=== PATIENT | male | born 1990 | race Caucasian/White ===

== ENCOUNTER 2017-03-02 19:55 | Outpatient (CLI) | payer OTHER | END 2017-03-02 19:56 | disposition critical access hospital (66) | LOC: EMS 19:55 | PROVIDERS: ATTEND Surgery | DX: R07.9 Chest pain, unspecified (principal) | CPT/HCPCS: A0425; A0427 ==

== ENCOUNTER 2017-03-02 20:16 | Emergency (ER) | payer OTHER ==
--- NOTE | 2017-03-02 21:58 | ED Physician Documentation ---
PD HPI CHEST PAIN - Stated complaint Stated Complaint: CP - Chief complaint Chief Complaint: Cardiac - History obtained from History obtained from: Patient, Family, Friend - History of Present Illness Timing - onset: Enter time (1900), Today Timing - onset during: Light activity Timing - duration: Hours (2) Timing - details: Abrupt onset, Now resolved Quality: Tightness, Sharp, Pain Location: Left chest Radiation: No: Jaw, Neck, Back, Abdominal, Left upper extremity, Right upper extremity Improved by: Nothing Worsened by: Other (nothing) Associated symptoms: Other (numbness to the toes and lips). 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 He describes the pain is sharp intermittent and painful. Without radiation. He thought that he might have some heartburn and bought some antacids went to his car took a lot of antacids and this did not seem to help. He went to get [employer] for his family and came home and relayed this information to his . She eventually convinced him to come to the hospital and in route to the hospital he developed worsening of his symptoms and his describes he appeared pale and he had developed the numbness in the fingers and toes. He was transported the hospital by ambulance with this pain and about one half hour after being in the emergency department his pain is resolved and he feels normal now. He describes only a prior episode of a rapid heart rate yesterday as the only thing this happened to him recently. He states that otherwise he has been feeling well. He returned from a det yesterday where he had been in [place] for the [employer]. He denies any overt anxiety or worries about things either at home or work. Review of Systems Constitutional: denies: Fever, Chills, Myalgias, Fatigue Eyes: denies: Decreased vision Ears: denies: Ear pain Nose: denies: Rhinorrhea / runny nose, Congestion Throat: denies: Sore throat Cardiac: reports: Chest pain / pressure, Palpitations (yesterday lasting minutes ) Respiratory: denies: Dyspnea, Cough GI: denies: Abdominal Pain, Nausea, Vomiting : denies: Dysuria, Frequency Skin: denies: Rash Musculoskeletal: denies: Neck pain, Back pain, Extremity pain Neurologic: reports: Numbness. denies: Generalized weakness, Focal weakness Psychiatric: denies: Depressed, Anxiety PD PAST MEDICAL HISTORY - Past Medical History Past Medical History: No - Past Surgical History Past Surgical History: No - Present Medications Home Medications: Ambulatory Orders Medication Instructions Recorded Confirmed No Known Home Medications [No 03/02/17 03/02/17 Known Home Medications] - Allergies Allergies/Adverse Reactions: Allergies Allergy/AdvReac Type Severity Reaction Status Date / Time No Known Drug Allergies Allergy Verified 03/02/17 20:22 - Social History Does the pt smoke?: No Smoking Status: Never smoker Does the pt drink ETOH?: Yes Does the pt have substance abuse?: No - Immunizations Immunizations are current?: Yes - POLST Patient has POLST: No PD ED PE NORMAL - Vitals Vital signs reviewed: Yes (hypertensive ) - General General: Alert and oriented X 3, No acute distress, Well developed/nourished - HEENT HEENT: Atraumatic, PERRL, EOMI, Moist mucous membranes, Pharynx benign, Dentition benign - Neck Neck: Supple, no meningeal sign, No bony TTP - Cardiac Cardiac: RRR, No murmur - Respiratory Respiratory: No respiratory distress, Clear bilaterally - Abdomen Abdomen: Soft, Non tender - Back Back: No CVA TTP, No spinal TTP - Derm Derm: Normal color, Warm and dry, No rash - Extremities Extremities: No deformity, No edema - Neuro Neuro: Alert and oriented X 3, 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, No motor deficit, No sensory deficit, Normal speech - Psych Psych: Normal mood, Normal affect Results - Vitals Vitals: Vital Signs - 24 hr 03/02/17 03/02/17 03/02/17 20:17 20:42 23:24 Temperature 36.8 C Heart Rate 67 63 58 L Respiratory 18 13 18 Rate Blood Pressure 149/84 H 148/85 H O2 Saturation 99 99 96 03/02/17 23:32 Temperature Heart Rate Respiratory Rate Blood Pressure 122/70 O2 Saturation Oxygen O2 Source Room air - EKG (time done) 2023 Rate: Rate (enter#) (74) Rhythm: Other (sinus arrythmia) Ischemia: Normal ST segments Compare to prior EKG: Old EKG unavailable Computer interpretation: Agree with computer - Labs Labs: Laboratory Tests 03/02/17 03/02/17 03/02/17 22:05 22:05 22:05 WBC 11.1 H RBC 4.93 Hgb 15.3 Hct 43.0 MCV 87.1 MCH 31.1 H MCHC 35.7 RDW 13.0 Plt Count 277 MPV 7.2 L Neut # 8.4 H Lymph # 1.8 [place] # 0.7 Eos # 0.1 Baso # 0.1 Absolute Nucleated RBC 0.00 Nucleated RBCs 0.0 Sodium 138 Potassium 3.9 Chloride 101 Carbon Dioxide 26 Anion Gap 11.0 BUN 18 Creatinine 1.1 Estimated GFR (MDRD) 81 L Glucose 99 Calcium 10.4 H Total Bilirubin 0.6 AST 27 ALT 34 Alkaline Phosphatase 75 Troponin I < 0.04 Total Protein 8.3 H Albumin 5.2 Globulin 3.1 Albumin/Globulin Ratio 1.7 Lipase 25 - Rads (name of study) 2 view chest Radiology: Prelim report reviewed (Impression: Normal two-view chest radiography.), EMP read indepedently, See rad report PD MEDICAL DECISION MAKING - ED course Complexity details: reviewed old records, reviewed results, re-evaluated patient , considered differential, d/w patient, d/w family ED course: 26-year-old male with acute chest pains this evening accompanied by some numbness and tingling of his toes and fingers consistent with hyperventilation syndrome. His workup here today is unremarkable. The patient does not believe he has reasons to be anxious and is having a hard time believing his symptoms are related to anxiety. I have encouraged the patient to return to the emergency department should he have recurrence of symptoms and for reevaluation.I did discuss with the patient progression of anxiety and panic attack in his age group. I did discuss subconscious anxiety and factors that would indicate her need to return to the emergency department for reevaluation. Departure - Departure Disposition: 01 Home, Self Care Clinical Impression: Atypical chest pain, Anxiety attack Condition: Stable Instructions: ED Panic Attack, ED Chest Pain Atypical Unkn Cause Follow-Up: LYNNE Slater [Provider Group] Discharge Date/Time: 03/02/17 23:40
[2017-03-02 22:14] LABS: BASOPHILS # (AUTO) 0.1 10^3/uL (0.0-0.1); BASOPHILS % (AUTO) 0.6 %; EOSINOPHILS # (AUTO) 0.1 10^3/uL (0.0-0.7); HGB - HEMOGLOBIN 15.3 g/dL (14.0-18.0); LYMPHOCYTES # (AUTO) 1.8 10^3/uL (1.5-3.5); LYMPHOCYTES % (AUTO) 16.3 %; MEAN CORPUSCULAR HEMOGLOBIN 31.1 pg (27.0-31.0); MEAN CORPUSCULAR HGB CONC 35.7 g/dL (32.0-36.0); MEAN CORPUSCULAR VOLUME 87.1 fL (80.0-94.0); MEAN PLATELET VOLUME 7.2 fL (7.4-11.4); MONOCYTES # (AUTO) 0.7 10^3/uL (0.0-1.0); MONOCYTES % (AUTO) 6.4 %; NEUTROPHILS # (AUTO) 8.4 10^3/uL (1.5-6.6); NEUTROPHILS % (AUTO) 75.7 %; RED BLOOD COUNT 4.93 10^6/uL (4.70-6.10); UNCORRECTED WHITE BLOOD COUNT 11.1 x10^3/uL; WHITE BLOOD COUNT 11.1 x10^3/uL (4.8-10.8)
[2017-03-02 22:28] LABS: ALBUMIN/GLOBULIN RATIO 1.7 (1.0-2.2); BILIRUBIN,TOTAL 0.6 mg/dL (0.2-1.0); CALCIUM 10.4 mg/dL (8.5-10.3); CREATININE 1.1 mg/dL (0.6-1.2); POTASSIUM 3.9 mmol/L (3.5-5.0); TOTAL PROTEIN 8.3 g/dL (6.7-8.2)
--- NOTE | 2017-03-02 22:38 | XRAY Preliminary Report ---
Exam: XR Chest 2 View PA/LAT IMPRESSION: Normal 2-view chest radiography. [facility] SITE ID: [id number]
--- NOTE | 2017-03-02 22:41 | XRAY Report ---
EXAM: CHEST RADIOGRAPHY EXAM DATE: 03/02/2017 10:20 PM. CLINICAL HISTORY: Chest pain . COMPARISON: None. TECHNIQUE: 2 views. FINDINGS: Lungs/Pleura: No focal opacities evident. No pleural effusion. No pneumothorax. Normal volumes. Mediastinum: Heart and mediastinal contours are unremarkable. Other: None. IMPRESSION: Normal 2-view chest radiography. [facility] Referring Provider Line: [phone] SITE ID: [id number]
[2017-03-02 23:34] VITALS: BP 122/70
== END 2017-03-02 23:40 | disposition home or self-care (01) ==
LOC: EDUNIT# → ED 20:16
DX: R07.89 Other chest pain (principal); F41.9 Anxiety disorder, unspecified
CPT/HCPCS: 36415; 71020; 80053; 83690; 84484; 85025; 93005; 99284

== ENCOUNTER 2017-08-16 16:23 | Outpatient (CLI) | payer OTHER ==
--- NOTE | 2017-08-17 16:29 | MRI Report ---
EXAM: MRI LUMBAR SPINE WITHOUT CONTRAST EXAM DATE: 08/16/2017 05:07 PM. CLINICAL HISTORY: Low back pain. COMPARISON: None. TECHNIQUE: Multiplanar, multisequence T1-weighted and fluid-sensitive sequences of the lumbar spine f rom T12 to S1 without contrast. Other: None. FINDINGS: There is normal alignment of the lumbar spine. There is a mild decrease in the height of the disk wit h desiccation at L4-L5. There is Modic type I and Modic type II endplate degenerative change within t he L4-L5 endplates. The conus terminates at T12-L1 and is normal. There is no significant atrophy of the paraspinal musculature or the psoas musculature. The abdominal aorta is of normal caliber. The kidneys are without evidence of hydronephrosis. T12-L1: There is no significant disk bulge, central or foraminal stenosis. The facets are normal. L1-L2: There is no significant disk bulge, central or foraminal stenosis. The facets are normal. L2-L3: There is no significant disk bulge, central or foraminal stenosis. The facets are normal. L3-L4: There is no significant disk bulge, central or foraminal stenosis. The facets are normal. L4-L5: There is a broad-based disk osteophyte complex with annular tear producing a minimal central c anal stenosis. There is mild left and mild to moderate right foraminal stenosis. L5-S1: There is no significant disk bulge, central or foraminal stenosis. The facets are normal. IMPRESSION: 1. There is a broad-based disk osteophyte complex with annular tear at L4-L5 producing a minimal cent ral canal stenosis. There is mild left and [id number] right foraminal stenosis. Comment: The following findings are so common in adults without low back pain that while we report th eir presence, they must be interpreted with caution and in the context of the clinical situation. (Re cy Joseph et al, Spine 2001) Prevalence of findings in patients without low back pain: Disk degeneration (any evidence): 92% Disk desiccation/T2 signal loss: 83% Disk height loss: 56% Disk bulge: 64% Disk protrusion: 32% Annular tear/high intensity zone: 38% [facility] Referring Provider Line: [phone] SITE ID: [id number]
== END 2017-08-16 16:24 | disposition home or self-care (01) ==
LOC: DI 16:23
PROVIDERS: ATTEND General Practice
DX: M51.36 Other intervertebral disc degeneration, lumbar region (principal)
CPT/HCPCS: 72148

== ENCOUNTER 2017-09-16 15:38 | Emergency (ER) | payer OTHER ==
--- NOTE | 2017-09-16 16:46 | ED Physician Documentation ---
PD HPI ABD PAIN - Stated complaint Stated Complaint: R SIDE PAIN - Chief complaint Chief Complaint: Abd Pain - History obtained from History obtained from: Patient - History of Present Illness Timing - onset: How many weeks ago (1) Timing - duration: Weeks (1) Timing - details: Abrupt onset, Still present Pain level max: 8 Pain level now: 2 Quality: Cramping, Sharp, Pain Location: RUQ Improved by: Laying still Worsened by: Eating, Breathing, Position, Palpation Associated symptoms: Nausea, Constipation. No: Vomiting Similar symptoms before: No diagnosis Recently seen: Not recently seen - Additional information Additional information: 27-year-old male reports that over the past year that he has had right upper quadrant pain that is sharp after eating. In in brief episodes. He has now developed pain that is a dull ache in the right upper quadrant that is been present for 1 week. He continues to get an increase in the pain to a sharpness when he eats. He as had a reduced amount that he is eating he has not lost weight. Review of Systems Constitutional: denies: Fever Eyes: denies: Decreased vision Ears: denies: Ear pain Nose: denies: Congestion Throat: denies: Sore throat Cardiac: denies: Chest pain / pressure, Palpitations Respiratory: denies: Dyspnea, Cough GI: reports: Abdominal Pain, Constipation. denies: Nausea, Vomiting : denies: Dysuria, Frequency Skin: denies: Rash Musculoskeletal: denies: Neck pain, Back pain, Extremity pain PD PAST MEDICAL HISTORY - Past Medical History Past Medical History: No - Past Surgical History Past Surgical History: No - Present Medications Home Medications: Ambulatory Orders Medication Instructions Recorded Confirmed No Known Home Medications [No 03/02/17 03/02/17 Known Home Medications] - Allergies Allergies/Adverse Reactions: Allergies Allergy/AdvReac Type Severity Reaction Status Date / Time No Known Drug Allergies Allergy Verified 03/02/17 20:22 - Social History Does the pt smoke?: No Smoking Status: Never smoker Does the pt drink ETOH?: Yes Does the pt have substance abuse?: No - Immunizations Immunizations are current?: Yes - POLST Patient has POLST: No PD ED PE NORMAL - Vitals Vital signs reviewed: Yes (Diastolic hypertension) - General General: Alert and oriented X 3, No acute distress, Well developed/nourished - HEENT HEENT: Atraumatic, PERRL, EOMI - Neck Neck: Supple, no meningeal sign, No bony TTP - Cardiac Cardiac: RRR, No murmur - Respiratory Respiratory: No respiratory distress, Clear bilaterally - Abdomen Abdomen: Soft, Other (Rigth upper quadrant pain to palpation is mild but present. ) - Back Back: No CVA TTP, No spinal TTP - Derm Derm: Normal color, Warm and dry, No rash - Extremities Extremities: No deformity, No edema - Neuro Neuro: Alert and oriented X 3, No motor deficit, No sensory deficit, Normal speech Eye Opening: Spontaneous Motor: Obeys Commands Verbal: Oriented GCS Score: 15 - Psych Psych: Normal mood, Normal affect Results - Vitals Vitals: Vital Signs - 24 hr 09/16/17 09/16/17 15:46 18:42 Temperature 36.8 C Heart Rate 63 71 Respiratory 19 18 Rate Blood Pressure 131/87 H 130/75 O2 Saturation 97 98 Oxygen O2 Source Room air - Labs Labs: Laboratory Tests 09/16/17 09/16/17 16:48 16:48 WBC 4.9 RBC 4.81 Hgb 14.4 Hct 40.7 L MCV 84.8 MCH 29.9 MCHC 35.3 RDW 13.2 Plt Count 231 MPV 7.0 L Neut # 2.6 Lymph # 1.7 [place] # 0.5 Eos # 0.1 Baso # 0.0 Absolute Nucleated RBC 0.00 Nucleated RBC % 0.0 Sodium 137 Potassium 3.8 Chloride 103 Carbon Dioxide 25 Anion Gap 9.0 BUN 15 Creatinine 0.9 Estimated GFR (MDRD) 101 Glucose 98 Calcium 9.5 Total Bilirubin 0.9 AST 30 ALT 55 Alkaline Phosphatase 63 Total Protein 7.7 Albumin 4.7 Globulin 3.0 Albumin/Globulin Ratio 1.6 Lipase 24 - Rads (name of study) GB ultrasound Radiology: Prelim report reviewed (Impression: 1. The gallbladder demonstrates no stones or wall thickening. 2. There is no intra-or extrahepatic bile duct dilation. 3. There are is mild right hydronephrosis.), EMP read indepedently, See rad report Procedures - Bedside sono Bedside sono by EMP: With the use of bedside ultrasound the gallbladder is imaged it is sonographically tender and there is a thickened gallbladder wall measuring 0.8 cm. PD MEDICAL DECISION MAKING - ED course Complexity details: reviewed results, re-evaluated patient, considered differential, d/w patient ED course: 27-year-old male who has a history of pain in the right upper quadrant for more than a year. He states that usually this is been just a periodic sharp pain and he does related somehow to eating. I have chosen to investigate the gallbladder and this situation we found the gallbladder to be entirely normal. His blood work was entirely normal as well. He did have some hydronephrosis on the right side on the ultrasound and I considered CT scan of the abdomen and pelvis to rule out renal lithiasis and this seemed overkill when all other studies were normal and his symptoms do not match with renal lithiasis. He does have some point tenderness he is able to isolate to an area right under the ribs in the midaxillary line at the tip of the ninth rib. He does think he might of injured this area last week and I have given him a dose of dexamethasone. I am not finding any urgent emergency to treat and the patient will follow up with his primary as needed. Departure - Departure Disposition: 01 Home, Self Care Clinical Impression: Abdominal pain Qualifiers: Abdominal location: right upper quadrant Qualified Code(s): R10.11 - Right upper quadrant pain Instructions: ED Abdominal Pain Unkn Cause Follow-Up: Caryl Iverson MD [Primary Care Provider] -
[2017-09-16 16:55] LABS: BASOPHILS % (AUTO) 0.3 %; EOSINOPHILS # (AUTO) 0.1 10^3/uL (0.0-0.7); EOSINOPHILS % (AUTO) 2.8 %; HGB - HEMOGLOBIN 14.4 g/dL (14.0-18.0); LYMPHOCYTES # (AUTO) 1.7 10^3/uL (1.5-3.5); LYMPHOCYTES % (AUTO) 34.1 %; MEAN CORPUSCULAR HEMOGLOBIN 29.9 pg (27.0-31.0); MEAN CORPUSCULAR HGB CONC 35.3 g/dL (32.0-36.0); MEAN CORPUSCULAR VOLUME 84.8 fL (80.0-94.0); MONOCYTES # (AUTO) 0.5 10^3/uL (0.0-1.0); NEUTROPHILS # (AUTO) 2.6 10^3/uL (1.5-6.6); NEUTROPHILS % (AUTO) 52.8 %; PLT - PLATELET COUNT 231 10^3/uL (130-450); RED BLOOD COUNT 4.81 10^6/uL (4.70-6.10); RED CELL DISTRIBUTION WIDTH 13.2 % (12.0-15.0); WHITE BLOOD COUNT 4.9 x10^3/uL (4.8-10.8)
[2017-09-16 17:06] LABS: ALBUMIN 4.7 g/dL (3.2-5.5); ALBUMIN/GLOBULIN RATIO 1.6 (1.0-2.2); BILIRUBIN,TOTAL 0.9 mg/dL (0.2-1.0); CALCIUM 9.5 mg/dL (8.5-10.3); CREATININE 0.9 mg/dL (0.6-1.2); TOTAL PROTEIN 7.7 g/dL (6.7-8.2)
--- NOTE | 2017-09-16 19:19 | Ultrasound Report ---
EXAM: ABDOMEN ULTRASOUND LIMITED, RUQ EXAM DATE: 09/16/2017 05:34 PM. CLINICAL HISTORY: RUQ pain. COMPARISON: None. TECHNIQUE: Real-time scanning was performed with static images obtained. FINDINGS: Liver: Submitted images of liver demonstrate no focal lesions. Main portal vein flow: Hepatopetal. Gallbladder: No stones or wall thickening. There is a positive sonographic Ramírez sign. Biliary System: CBD measures 6 mm. No intrahepatic or extrahepatic ductal dilatation. Other: There is mild right hydronephrosis. IMPRESSION: 1. The gallbladder demonstrates no stones or wall thickening. 2. There is no intra-or extrahepatic bile duct dilatation. 3. There is mild right hydronephrosis. [facility] Referring Provider Line: [phone] SITE ID: [id number]
[2017-09-16] MEDS ORDERED: DEXAMETHASONE 10 MG/ML VIAL PO STA (19:34)
[2017-09-16 19:48] VITALS: BP 128/80
[2017-09-16] MEDS ORDERED: CHERRY SYRUP 10 ML UDC PO ONE (19:55)
== END 2017-09-16 19:56 | disposition home or self-care (01) ==
LOC: ED 15:38
DX: R10.11 Right upper quadrant pain (principal); N13.30 Unspecified hydronephrosis
CPT/HCPCS: 36415; 76705; 80053; 83690; 85025; 99283; 99284; A9270

== ENCOUNTER 2018-10-23 20:17 | Emergency (ER) | payer OTHER ==
[2018-10-23 20:49] LABS: BILIRUBIN,URINE NEGATIVE (NEGATIVE); GLUCOSE, URINE (UA) NEGATIVE (NEGATIVE); KETONES,URINE (UA) NEGATIVE (NEGATIVE); LEUKOCYTE ESTERASE, URINE NEGATIVE (NEGATIVE); NITRITE,URINE NEGATIVE (NEGATIVE); OCCULT BLOOD,URINE NEGATIVE (NEGATIVE); PROTEIN,URINE NEGATIVE (NEGATIVE); UROBILINOGEN,URINE 0.2 (NORMAL) E.U./dL (NORMAL)
[2018-10-23 20:52] LABS: CLARITY,URINE CLEAR (CLEAR)
[2018-10-23 21:08] LABS: BASOPHILS % (AUTO) 0.6 %; EOSINOPHILS # (AUTO) 0.1 10^3/uL (0.0-0.7); EOSINOPHILS % (AUTO) 2.6 %; HGB - HEMOGLOBIN 14.3 g/dL (14.0-18.0); LYMPHOCYTES # (AUTO) 1.7 10^3/uL (1.5-3.5); LYMPHOCYTES % (AUTO) 29.6 %; MEAN CORPUSCULAR HEMOGLOBIN 29.8 pg (27.0-31.0); MEAN CORPUSCULAR HGB CONC 35.2 g/dL (32.0-36.0); MEAN CORPUSCULAR VOLUME 84.8 fL (80.0-94.0); MEAN PLATELET VOLUME 7.1 fL (7.4-11.4); MONOCYTES # (AUTO) 0.5 10^3/uL (0.0-1.0); MONOCYTES % (AUTO) 9.1 %; NEUTROPHILS # (AUTO) 3.3 10^3/uL (1.5-6.6); NEUTROPHILS % (AUTO) 58.1 %; PLT - PLATELET COUNT 279 10^3/uL (130-450); RED CELL DISTRIBUTION WIDTH 13.2 % (12.0-15.0); WHITE BLOOD COUNT 5.7 x10^3/uL (4.8-10.8)
--- NOTE | 2018-10-23 21:14 | ED Physician Documentation ---
PD HPI ABD PAIN - Stated complaint Stated Complaint: RT SIDE PX - Chief complaint Chief Complaint: Abd Pain - History obtained from History obtained from: Patient - History of Present Illness Timing - onset: How many months ago (intermittently for past few months, just few minutes at a time. Not seeming to be related to eating. He states his been more often the past week and today will with it this morning and is continued all day. He denies any nausea vomiting or diarrhea. There is no rash or sores. It hurts more with movement and coughing and palpation.) Timing - details: Intermittant Quality: Aching, Sharp, Pain Location: RUQ Radiation: Upper back. No: Right flank Improved by: Laying still. No: Eating Worsened by: Position (lying on side), Palpation. No: Eating, Moving, Breathing Associated symptoms: Nausea, Loss of appetite (today). No: Fever, Vomiting, Diarrhea, Constipation, Near syncope / syncope Similar symptoms before: No diagnosis Recently seen: Not recently seen Review of Systems Constitutional: denies: Fever, Chills, Myalgias Nose: denies: Rhinorrhea / runny nose, Congestion Throat: denies: Sore throat Respiratory: denies: Cough GI: reports: Abdominal Pain, Nausea. denies: Vomiting, Constipation, Diarrhea, Bloody / black stool : denies: Dysuria, Frequency Skin: denies: Rash Musculoskeletal: denies: Back pain Neurologic: denies: Generalized weakness, Focal weakness, Numbness, Near syncope PD PAST MEDICAL HISTORY - Past Medical History Cardiovascular: None Respiratory: None Neuro: None Endocrine/Autoimmune: None Musculoskeletal: Chronic back pain (and had disc replacement surgery couple months ago without problems. He had some pains RUQ prior to the surgery. ) - Past Surgical History Past Surgical History: No - Present Medications Home Medications: Ambulatory Orders Medication Instructions Recorded Confirmed Famotidine 20 mg PO DAILY #30 tablet 10/24/18 Naproxen 375 mg PO BID #20 tablet 10/24/18 Oxycodone HCl/Acetaminophen 1 each PO Q6H PRN #15 tablet 10/24/18 [Percocet 5-325 mg Tablet] - Allergies Allergies/Adverse Reactions: Allergies Allergy/AdvReac Type Severity Reaction Status Date / Time No Known Drug Allergies Allergy Verified 10/23/18 20:33 - Social History Does the pt smoke?: No Smoking Status: Never smoker Does the pt drink ETOH?: Yes Does the pt have substance abuse?: No - Immunizations Immunizations are current?: Yes - POLST Patient has POLST: No PD ED PE NORMAL - Vitals Vital signs reviewed: Yes - General General: Alert and oriented X 3, Well developed/nourished, Other (appears in pain and holding RUQ. ) - HEENT HEENT: Moist mucous membranes, Pharynx benign - Neck Neck: Supple, no meningeal sign, No adenopathy - Cardiac Cardiac: RRR, No murmur - Respiratory Respiratory: Clear bilaterally - Abdomen Abdomen: Soft, Non distended, No organomegaly, Other (tender RUQ with local guarding and mild percussion tenderness. No general guarding nor tenderness. ). No: Normal bowel sounds (diminished) - Back Back: No CVA TTP - Derm Derm: Normal color, Warm and dry - Extremities Extremities: No tenderness to palpate, Normal ROM s pain, No edema, No calf tenderness / cord - Neuro Neuro: Alert and oriented X 3, No motor deficit, Normal speech Results - Vitals Vitals: Vital Signs - 24 hr 10/23/18 10/23/18 10/23/18 20:31 20:33 22:33 Temperature 36.9 C 36.9 C 37 C Heart Rate 79 79 78 Respiratory 17 17 16 Rate Blood Pressure 126/86 H 126/86 H 137/81 H O2 Saturation 95 95 100 10/24/18 10/24/18 00:24 01:31 Temperature Heart Rate 67 Respiratory 19 16 Rate Blood Pressure 145/79 H O2 Saturation 99 Oxygen O2 Source Room air - Labs Labs: Laboratory Tests 10/23/18 10/23/18 10/23/18 20:21 21:01 21:01 WBC 5.7 RBC 4.80 Hgb 14.3 Hct 40.7 L MCV 84.8 MCH 29.8 MCHC 35.2 RDW 13.2 Plt Count 279 MPV 7.1 L Neut # (Auto) 3.3 Lymph # (Auto) 1.7 [place] # (Auto) 0.5 Eos # (Auto) 0.1 Baso # (Auto) 0.0 Absolute Nucleated RBC 0.00 Nucleated RBC % 0.0 Sodium 140 Potassium 3.6 Chloride 105 Carbon Dioxide 27 Anion Gap 8.0 BUN 17 Creatinine 0.9 Estimated GFR (MDRD) 100 Glucose 118 H Calcium 10.0 Total Bilirubin 0.6 AST 28 ALT 48 Alkaline Phosphatase 79 Total Protein 8.3 H Albumin 5.1 Globulin 3.2 Albumin/Globulin Ratio 1.6 Lipase 32 Urine Color YELLOW Urine Clarity CLEAR Urine pH 7.0 Ur Specific [place] 1.015 Urine Protein NEGATIVE Urine Glucose (UA) NEGATIVE Urine Ketones NEGATIVE Urine Occult Blood NEGATIVE Urine Nitrite NEGATIVE Urine Bilirubin NEGATIVE Urine Urobilinogen 0.2 (NORMAL) Ur Leukocyte Esterase NEGATIVE Ur Microscopic Review NOT INDICATED Urine Culture Comments NOT INDICATED - Rads (name of study) RUQ abd U/S Radiology: Prelim report reviewed (normal), See rad report Abd Pelvic CT Radiology: Prelim report reviewed (No acute abnormality seen), See rad report PD MEDICAL DECISION MAKING - ED course Complexity details: reviewed results, re-evaluated patient (no improvement with GI cocktail. Did get better with pain meds. ), considered differential (seems like gallbladder, but consider duodenitis, but not changed with eating. Musculoskeletal at lower costal margin?), d/w patient Departure - Departure Disposition: Home, Self Care Clinical Impression: Abdominal pain Qualifiers: Abdominal location: right upper quadrant Qualified Code(s): R10.11 - Right upper quadrant pain Condition: Stable Record reviewed to determine appropriate education?: Yes Instructions: ED Abdominal Pain Unkn Cause Follow-Up: Yumi Freed MD [Primary Care Provider] - Prescriptions: Famotidine 20 mg PO DAILY #30 tablet Naproxen 375 mg PO BID #20 tablet Oxycodone HCl/Acetaminophen [Percocet 5-325 mg Tablet] 1 each PO Q6H PRN #15 tablet PRN Reason: pain Comments: Your ultrasound labs and CT scan are normal. Consider the possibility of stomach or duodenal pain. Potentially he could have gallbladder pains without gallstones or wall thickening. Also consider musculoskeletal pains. At this point treated with some naproxen anti-inflammatory twice daily for inflammation causes. Can take famotidine daily to reduce stomach acids. Add Tylenol or Percocet if needed for pains. Follow-up with your primary care, call Friday for an appointment. Return if other symptoms develop or worsening pain. Discharge Date/Time: 10/24/18 01:32
[2018-10-23 21:19] LABS: ALBUMIN 5.1 g/dL (3.2-5.5); ALBUMIN/GLOBULIN RATIO 1.6 (1.0-2.2); BILIRUBIN,TOTAL 0.6 mg/dL (0.2-1.0); CREATININE 0.9 mg/dL (0.6-1.2); TOTAL PROTEIN 8.3 g/dL (6.7-8.2)
[2018-10-23] MEDS ORDERED: MORPHINE 2 MG/ML SYRINGE IVP STA (21:37)
[2018-10-23] MEDS ORDERED: ONDANSETRON 4 MG/2 ML VIAL IVP STA (21:37)
[2018-10-23] MEDS ORDERED: SODIUM CHLORIDE 0.9% 1,000 ML IV ONE (21:38)
[2018-10-23] MEDS ORDERED: MAG HYDROX/AL HYDROX/SIMETH 30 ML UDC PO STA (22:57)
[2018-10-23] MEDS ORDERED: LIDOCAINE VISCOUS 2% 15 ML UDC MM STA (22:57)
[2018-10-23] MEDS ORDERED: IOVERSOL 320 100 ML VIAL IVP ONE ×2 (23:19→23:52)
--- NOTE | 2018-10-23 23:19 | Ultrasound Report ---
Reason: RUQ pain persistent today; intermit x month Procedure Date: 10/23/2018 Accession Number: [id number] / [id number] Procedure: US - Abdomen Limited CPT Code: FULL RESULT: EXAM: ABDOMEN ULTRASOUND LIMITED, RUQ EXAM DATE: 10/23/2018 10:43 PM. CLINICAL HISTORY: RUQ pain persistent today; intermit x month. COMPARISON: ABDOMEN LIMITED 09/16/2017 5:33 PM. TECHNIQUE: Real-time scanning was performed with static images obtained. FINDINGS: Liver: Normal in size and echotexture. 14.5 cm. Main portal vein flow: Hepatopetal. Gallbladder: Normal. No stones, wall thickening, or sonographic Ramírez's sign. Biliary System: CBD measures 4 mm. No intrahepatic or extrahepatic ductal dilatation. Other: No right hydronephrosis. No free fluid. IMPRESSION: Normal. No cholelithiasis or cholecystitis. [facility]
--- NOTE | 2018-10-24 | CT Report ---
Reason: Right abd pain steady today; intermittent for brooklynn Procedure Date: 10/23/2018 Accession Number: [id number] / [id number] Procedure: CT - Abdomen/Pelvis W CPT Code: FULL RESULT: EXAM: CT ABDOMEN AND PELVIS EXAM DATE: 10/23/2018 11:32 PM. CLINICAL HISTORY: Right abd pain steady today; intermittent for brooklynn. COMPARISONS: None. TECHNIQUE: Routine helical CT imaging was performed through the abdomen and pelvis. IV contrast: opti 320 90 ml. Enteric contrast: No. Reconstructions: Coronal and sagittal. In accordance with CT protocol optimization, one or more of the following dose reduction techniques were utilized for this exam: automated exposure control, adjustment of mA and/or KV based on patient size, or use of iterative reconstructive technique. FINDINGS: ABDOMEN: Lung Bases: Incompletely included lower lungs are grossly clear. Heart size is within normal limits. No basilar effusions. Liver: Unremarkable. Spleen: Unremarkable. Pancreas: Unremarkable. Gallbladder/Bile Ducts: Gallbladder is unremarkable. Biliary tree is normal caliber. Adrenal Glands: Unremarkable. Kidneys: No mass, calculi, or hydronephrosis. Peritoneum/Mesentery/Bowel: No free fluid, free air, or collection. No intestinal obstruction or inflammation. The appendix is within normal limits. Lymph nodes: No mesenteric, periportal, or retroperitoneal lymphadenopathy. Vasculature: Abdominal aorta is nonaneurysmal. Portal vein is patent. Hepatic veins are patent. PELVIS: The bladder is unremarkable for the degree of distention. Prostate is present. No pelvic lymphadenopathy. Bones: No suspicious osseous lesions. Prosthetic disk at L4-L5. IMPRESSION: No acute abnormalities. [facility]
[2018-10-24 00:25] VITALS: BP 145/79
[2018-10-24] MEDS ORDERED: HYDROmorphone 1 MG/ML CARPUJECT IVP STA (00:53)
[2018-10-24] MEDS ORDERED: KETOROLAC 30 MG/ML VIAL IVP STA (00:54)
[2018-10-24] MEDS ORDERED: oxyCODONE/ACET 5/325 Prepack 4 PO STA (00:54)
[2018-10-24] MEDS ORDERED: FAMOTIDINE 20 MG/2 ML VIAL IVP STA (00:54)
== END 2018-10-24 01:32 | disposition home or self-care (01) ==
LOC: ED 20:17
DX: R10.11 Right upper quadrant pain (principal)
CPT/HCPCS: 36415; 74177; 76705; 80053; 81003; 83690; 85025; 96361; 96374; 96375; 99283; 99284; A9270; J1170; J2270; Q9967; 81001; 87086

== ENCOUNTER 2018-11-16 08:28 | Outpatient (CLI) | payer OTHER ==
[2018-11-16] MEDS ORDERED: SINCALIDE 5 MCG VIAL ONE (09:34)
[2018-11-16] MEDS ORDERED: SINCALIDE 1.7 MCG in SODIUM CHLORIDE 0.9% 50 ML IV ONE (11:23)
--- NOTE | 2018-11-16 15:27 | Nuclear Medicine Report ---
Reason: RIGHT UPPER QUADRANT PAIN Procedure Date: 11/16/2018 Accession Number: [id number] / [id number] Procedure: NM - Hepatobiliary HIDA w/ Rx CPT Code: FULL RESULT: EXAM: HEPATOBILIARY SCAN WITH CCK/KINEVAC ADMINISTRATION EXAM DATE: 11/16/2018 11:24 AM. CLINICAL HISTORY: Right upper quadrant abdominal pain COMPARISON: ABDOMEN LIMITED 10/23/2018 10:28 PM. TECHNIQUE: Following the intravenous administration of 5.4 mCi of Tc99m Mebrofenin, a hepatobiliary scan was done centered on the liver and gallbladder in multiple sequential images and projections. Following the intravenous administration of 1.68 mcg of CCK/ Kinevac over the course of approximately 60 minutes, dynamic imaging was done and the gallbladder ejection fraction was calculated. FINDINGS: Normal extraction of tracer from the blood pool indicating normal hepatocellular function. The liver size and shape is grossly within normal limits. There is activity visualized within the bile ducts, gallbladder, and small bowel during the first hour. With CCK administration, the gallbladder demonstrates an effective contraction. The gallbladder ejection fraction is calculated to be 92%, well above the lower limit of normal of 38% for a 60-minute injection. The patient did not report symptoms after CCK administration. No evidence of enteric reflux into the stomach. No significant collection of tracer remaining in the common bile duct by the end of the study. IMPRESSION: 1. Patent cystic duct. 2. Patent common bile duct. 3. Negative for acute or chronic cholecystitis. 4. No enterogastric bile reflux. 5. Gallbladder ejection fraction of 92%. [facility]
== END 2018-11-16 08:29 | disposition home or self-care (01) ==
LOC: DI 08:28
PROVIDERS: ATTEND Student in an Organized Health Care Education/Training Program
DX: R10.11 Right upper quadrant pain (principal)
CPT/HCPCS: 78227; J7040